=== PATIENT | male | born 1970 | race Caucasian/White ===

== ENCOUNTER 2018-02-22 13:45 | Emergency (ER) | payer BC ==
--- NOTE | 2018-02-22 14:51 | EDM.PDOC ---
<Gianna Villa - Last Filed: 02/22/18 15:20> ED HPI GENERAL MEDICAL PROBLEM - General Chief Complaint: Gastrointestinal Problem Stated Complaint: BLOOD IN STOOL Time Seen by Provider: 02/22/18 14:24 Source of Information: Reports: Patient - History of Present Illness INITIAL COMMENTS - FREE TEXT/NARRATIVE: Everardo is a 47-year-old man with history of psoriasis who reports blood in his stool with onset today. Pt states he had "the flu," for the past two days, described as diarrhea. No nausea, vomiting or abdominal pain. He does have mild abdominal cramping. He has no known sick contacts, no known exposures to raw or contaminated food, and no recent travel or antibiotic use. He reports having bright red blood with diarrhea today, described as turning the toilet water completely red. No known history of hemorrhoids. No NSAID or Tylenol use. He has never had a colonoscopy. He does drink to excess, with at least two drinks a day and 12 drinks on days he binges. - Related Data Allergies Allergy/AdvReac Type Severity Reaction Status Date / Time Penicillins Allergy Hives Verified 02/22/18 14:14 Home Meds: Home Meds . [No Known Home Meds] 02/22/18 [History] Past Medical History - Past Health History Medical/Surgical History: Denies Medical/Surgical History Dermatologic History: Reports: Psoriasis Social & Family History - Tobacco Use Smoking Status *Q: Current Every Day Smoker Years of Tobacco use: 27 Packs/Tins Daily: 0.5 - Caffeine Use Caffeine Use: Reports: Coffee, Energy Drinks - Recreational Drug Use Recreational Drug Use: No ED ROS GENERAL - Review of Systems Review Of Systems: ROS reveals no pertinent complaints other than HPI. Constitutional: Denies: Fever, Chills, Weakness, Decreased Appetite Respiratory: Reports: No Symptoms Cardiovascular: Reports: No Symptoms. Denies: Lightheadedness, Syncope GI/Abdominal: Reports: Abdominal Pain (abdominal pain), Bloody Stool, Diarrhea, Hematochezia (bright red blood in stool). Denies: Nausea Musculoskeletal: Reports: No Symptoms Skin: Reports: Other (psoriasis) Neurological: Reports: No Symptoms, Numbness Hematologic/Lymphatic: Reports: No Symptoms ED EXAM, GI/ABD - Physical Exam Exam Limited By: No Limitations General Appearance: Alert, No Apparent Distress Respiratory/Chest: Lungs Clear, Normal Breath Sounds Cardiovascular: Normal Peripheral Pulses, Regular Rate, Rhythm, No Murmur GI/Abdominal Exam: Normal Bowel Sounds, Soft, Non-Tender Extremities: Normal Capillary Refill Neurological: Alert, Oriented, Normal Cognition Psychiatric: Normal Affect, Normal Mood Skin Exam: Other (multiple psoriatic plaques, generalized) Course - Vital Signs Last Recorded V/S: Last Vital Signs Temp 36.9 C 02/22/18 17:52 Pulse 75 02/22/18 17:52 Resp 18 02/22/18 17:52 BP 118/78 02/22/18 17:52 Pulse Ox 99 02/22/18 17:52 - Orders/Labs/Meds Orders: Active Orders 24 hr Category Date Time Status Peripheral IV Care [RC] . DIRECTED Care 02/22/18 15:05 Active Peripheral IV Care [RC] . DIRECTED Care 02/22/18 15:05 Active C DIFFICILE BY PCR W/NAP1 [MOLEC] Stat Lab 02/22/18 15:32 Received CULTURE STOOL + SHIGATOX [RM] Stat Lab 02/22/18 15:32 Received PATIENT RETYPE [BBK] Stat Lab 02/22/18 15:32 Results TYPE AND SCREEN [BBK] Stat Lab 02/22/18 15:32 Results Peripheral IV Insertion Adult [OM.PC] Routine Oth 02/22/18 15:04 Ordered Labs: Laboratory Tests 02/22/18 02/22/18 02/22/18 Range/Units 15:32 15:32 15:32 WBC 9.58 H (4.23-9.07) K/mm3 RBC 4.44 L (4.63-6.08) M/mm3 Hgb 14.7 (13.7-17.5) gm/L Hct 42.2 (40.1-51.0) % MCV 95.0 H (79.0-92.2) fl MCH 33.1 H (25.7-32.2) pg MCHC 34.8 (32.2-35.5) g/dl RDW Std Deviation 41.7 (35.1-43.9) fL Plt Count 321 (163-337) K/mm3 MPV 8.3 L (9.4-12.3) fl Neut % (Auto) 59.6 (34.0-67.9) % Lymph % (Auto) 26.3 (21.8-53.1) % [place] % (Auto) 12.1 (5.3-12.2) % Eos % (Auto) 1.4 (0.8-7.0) Baso % (Auto) 0.3 (0.1-1.2) % Neut # (Auto) 5.71 H (1.78-5.38) K/mm3 Lymph # (Auto) 2.52 (1.32-3.57) K/mm3 [place] # (Auto) 1.16 H (0.30-0.82) K/mm3 Eos # (Auto) 0.13 (0.04-0.54) K/mm3 Baso # (Auto) 0.03 (0.01-0.08) K/mm3 PT 11.0 (9.5-12.1) SECONDS INR 1.01 Sodium 139 (136-145) mEq/L Potassium 3.5 (3.5-5.1) mEq/L Chloride 104 (98-107) mEq/L Carbon Dioxide 25 (21-32) mEq/L Anion Gap 13.5 (5-15) BUN 6 L (7-18) mg/dL Creatinine 0.9 (0.7-1.3) mg/dL Est Cr Clr Drug Dosing 104.77 mL/min Estimated GFR (MDRD) > 60 (>60) mL/min BUN/Creatinine Ratio 6.7 L (14-18) Glucose 102 (74-106) mg/dL Calcium 8.7 (8.5-10.1) mg/dL Magnesium 1.9 (1.8-2.4) mg/dl Total Bilirubin 0.4 (0.2-1.0) mg/dL AST 18 (15-37) U/L ALT 28 (16-63) U/L Alkaline Phosphatase 64 (46-116) U/L Total Protein 6.8 (6.4-8.2) g/dl Albumin 3.2 L (3.4-5.0) g/dl Globulin 3.6 gm/dL Albumin/Globulin Ratio 0.9 L (1-2) Blood Type Gel Antibody Screen 02/22/18 Range/Units 15:32 WBC (4.23-9.07) K/mm3 RBC (4.63-6.08) M/mm3 Hgb (13.7-17.5) gm/L Hct (40.1-51.0) % MCV (79.0-92.2) fl MCH (25.7-32.2) pg MCHC (32.2-35.5) g/dl RDW Std Deviation (35.1-43.9) fL Plt Count (163-337) K/mm3 MPV (9.4-12.3) fl Neut % (Auto) (34.0-67.9) % Lymph % (Auto) (21.8-53.1) % [place] % (Auto) (5.3-12.2) % Eos % (Auto) (0.8-7.0) Baso % (Auto) (0.1-1.2) % Neut # (Auto) (1.78-5.38) K/mm3 Lymph # (Auto) (1.32-3.57) K/mm3 [place] # (Auto) (0.30-0.82) K/mm3 Eos # (Auto) (0.04-0.54) K/mm3 Baso # (Auto) (0.01-0.08) K/mm3 PT (9.5-12.1) SECONDS INR Sodium (136-145) mEq/L Potassium (3.5-5.1) mEq/L Chloride (98-107) mEq/L Carbon Dioxide (21-32) mEq/L Anion Gap (5-15) BUN (7-18) mg/dL Creatinine (0.7-1.3) mg/dL Est Cr Clr Drug Dosing mL/min Estimated GFR (MDRD) (>60) mL/min BUN/Creatinine Ratio (14-18) Glucose (74-106) mg/dL Calcium (8.5-10.1) mg/dL Magnesium (1.8-2.4) mg/dl Total Bilirubin (0.2-1.0) mg/dL AST (15-37) U/L ALT (16-63) U/L Alkaline Phosphatase (46-116) U/L Total Protein (6.4-8.2) g/dl Albumin (3.4-5.0) g/dl Globulin gm/dL Albumin/Globulin Ratio (1-2) Blood Type A POSITIVE Gel Antibody Screen Negative Meds: Medications Discontinued Medications Generic Name Dose Route Start Last Admin Trade Name Freq PRN Reason Stop Dose Admin Sodium Chloride 1,000 mls @ 1,000 mls/hr 02/22/18 15:05 02/22/18 15:40 Normal Saline IV 02/22/18 16:04 1,000 mls/hr ONETIME ONE Administration Sodium Chloride 10 ml 02/22/18 15:05 02/22/18 15:40 Saline Flush FLUSH 10 ml ASDIRECTED PRN Administration Keep Vein Open Departure - Departure Disposition: Home, Self-Care 01 Clinical Impression: Lower gastrointestinal bleeding Diarrhea Qualifiers: Diarrhea type: presumed infectious Qualified Code(s): R19.7 - Diarrhea, unspecified - Discharge Information Instructions: Lower Gastrointestinal Bleeding, Diarrhea, Adult, [id number] Referrals: PCP,None [Primary Care Provider] - Forms: ED Department Discharge Additional Instructions: 1. Follow up with the primary care provider of your choice as soon as possible ( ideally next week). Dr. Murphy does colonoscopies and may be a good option ( [place]). You may also follow up with a clinic provider here, call [phone] to schedule. 2. Discuss referral for colonoscopy with your doctor. 3. Return to the ED if you continue to have bloody bowel movements, if you start to feel dizzy/lightheaded, or for any other concerning symptoms. - My Orders Last 24 Hours: My Active Orders 02/22/18 15:04 Peripheral IV Insertion Adult [OM.PC] Routine 02/22/18 15:05 Peripheral IV Care [RC] . DIRECTED Peripheral IV Care [RC] . DIRECTED 02/22/18 15:32 C DIFFICILE BY PCR W/NAP1 [MOLEC] Stat CULTURE STOOL + SHIGATOX [RM] Stat PATIENT RETYPE [BBK] Stat TYPE AND SCREEN [BBK] Stat - Assessment/Plan Last 24 Hours: My Active Orders 02/22/18 15:04 Peripheral IV Insertion Adult [OM.PC] Routine 02/22/18 15:05 Peripheral IV Care [RC] . DIRECTED Peripheral IV Care [RC] . DIRECTED 02/22/18 15:32 C DIFFICILE BY PCR W/NAP1 [MOLEC] Stat CULTURE STOOL + SHIGATOX [RM] Stat PATIENT RETYPE [BBK] Stat TYPE AND SCREEN [BBK] Stat <Dominic Garrison A - Last Filed: 02/22/18 18:42> ED ROS GENERAL - Review of Systems Review Of Systems: See Below ED EXAM, GI/ABD - Physical Exam Exam: See Below Ears: Normal External Exam Nose: Normal Inspection Throat/Mouth: Normal Inspection, Normal Oropharynx, Normal Voice Head: Atraumatic, Normocephalic Neck: Normal Inspection, Supple Rectal (Males) Exam: Other (No external sign of bleeding. Stool sample provided here was grossly bloody. ) Course - Re-Assessments/Exams Free Text/Narrative Re-Assessment/Exam: 02/22/18 18:38 Continue to feel well and have normal vital signs. He did have one bloody bowel movement here. Discussed options including transfer to [facility] for admission ( surgeon economic historian today doesn't feel comfortable managing lower GI bleed) vs. dc home and return to ED if symptoms continue/worsen. Given that he is healthy, has normal HCT here today, normal vital signs, no blood thinners, I am comfortable discharging him with strict return precautions should bleeding continue. He has never had a colonoscopy, discussed that this will be needed as well. He is comfortable with plan for discharge, prefers not to be transferred at this time. Departure - Departure Time of Disposition: 17:34
--- NOTE | 2018-02-22 14:53 | EDM.PDOC ---
ED HPI GENERAL MEDICAL PROBLEM - General Chief Complaint: Gastrointestinal Problem Stated Complaint: BLOOD IN STOOL Time Seen by Provider: 02/22/18 14:24 - Related Data Allergies Allergy/AdvReac Type Severity Reaction Status Date / Time Penicillins Allergy Hives Verified 02/22/18 14:14 Home Meds: Home Meds . [No Known Home Meds] 02/22/18 [History] Past Medical History - Past Health History Medical/Surgical History: Denies Medical/Surgical History Dermatologic History: Reports: Psoriasis Social & Family History - Tobacco Use Smoking Status *Q: Current Every Day Smoker Years of Tobacco use: 27 Packs/Tins Daily: 0.5 - Caffeine Use Caffeine Use: Reports: Coffee, Energy Drinks - Recreational Drug Use Recreational Drug Use: No Course - Vital Signs Last Recorded V/S: Last Vital Signs Temp 98.6 F 02/22/18 14:11 Pulse 78 02/22/18 14:11 Resp 18 02/22/18 14:11 BP 121/80 02/22/18 14:11 Pulse Ox 98 02/22/18 14:11 Departure - Discharge Information Referrals: PCP,None [Primary Care Provider] -
[2018-02-22] MEDS ORDERED: Sodium Chloride 0.9% 10 ML Syringe FLUSH PRN (15:05)
[2018-02-22] MEDS ORDERED: Sodium Chloride 0.9% 1,000 ML IV ONE (15:05)
== END 2018-02-22 17:50 | disposition home or self-care (01) ==
LOC: JD.ED 13:45
DX: K92.2 Gastrointestinal hemorrhage, unspecified (principal); R19.7 Diarrhea, unspecified; F17.210 Nicotine dependence, cigarettes, uncomplicated; Z88.0 Allergy status to penicillin
CPT/HCPCS: 36415; 80053; 83735; 85025; 85610; 86850; 86900; 86901; 87046; 87493; 96360; 99283; J7040; J7050

== ENCOUNTER 2019-07-23 06:32 | Day surgery (SDC) | payer BC, OTHER ==
[2019-07-23] MEDS ORDERED: Bupivacaine 0.25% 10 ML SDV ONE (06:52)
[2019-07-23] MEDS ORDERED: Lidocaine 1% 50 ML MDV ONE (06:52)
[2019-07-23] MEDS ORDERED: Lidocaine 1%/Sod Bicarbonate in NS 8.4% 1 ML Syringe IDERM PRN (07:00)
[2019-07-23] MEDS ORDERED: Lactated Ringers 1,000 ML IV SCH (07:00)
[2019-07-23] MEDS ORDERED: Sodium Chloride 0.9% 10 ML Syringe FLUSH PRN (07:00)
--- NOTE | 2019-07-23 07:21 | PCM.PREANE ---
Preanesthetic Assessment - Anesthesia/Transfusion/Family Hx Anesthesia History: No Prior Anesthesia - Review of Systems General: No Symptoms Pulmonary: No Symptoms Cardiovascular: No Symptoms Gastrointestinal: No Symptoms Neurological: No Symptoms Other: Reports: None - Physical Assessment NPO Status Date: 07/22/19 NPO Status Time: 22:00 ASA Class: 2 Mental Status: Alert & Oriented x3 Airway Class: Mallampati = 1 Dentition: Reports: Caries Thyro-Mental Finger Breadths: 3 Mouth Opening Finger Breadths: 3 ROM/Head Extension: Full Lungs: Clear to Auscultation, Normal Respiratory Effort Cardiovascular: Regular Rate, Regular Rhythm - Lab Values: Laboratory Last Values MRSA (PCR) Negative 07/15/19 10:47 - Allergies Allergies/Adverse Reactions: Allergies Allergy/AdvReac Type Severity Reaction Status Date / Time Penicillins Allergy Hives Verified 07/22/19 13:05 - Acknowledgements Anesthesia Type Planned: Regional Block, MAC Pt an Appropriate Candidate for the Planned Anesthesia: Yes Alternatives and Risks of Anesthesia Discussed w Pt/Guardian: Yes Pt/Guardian Understands and Agrees with Anesthesia Plan: Yes PreAnesthesia Questionnaire - Past Health History Medical/Surgical History: Denies Medical/Surgical History HEENT History: Reports: Impaired Vision Cardiovascular History: Reports: None Respiratory History: Reports: None, Other (See Below) (possible sleep apnea) Gastrointestinal History: Reports: None Genitourinary History: Reports: None ROUTE RIDER SUPERVISOR History: Reports: None Musculoskeletal History: Reports: None Neurological History: Reports: None Psychiatric History: Reports: None Endocrine/Metabolic History: Reports: None Hematologic History: Reports: None Immunologic History: Reports: None Oncologic (Cancer) History: Reports: None Dermatologic History: Reports: None - Past Surgical History Head Surgeries/Procedures: Reports: None HEENT Surgical History: Reports: None Cardiovascular Surgical History: Reports: None Respiratory Surgical History: Reports: None GI Surgical History: Reports: None Female Surgical History: Reports: None Male Surgical History: Reports: Vasectomy Endocrine Surgical History: Reports: None Neurological Surgical History: Reports: None Musculoskeletal Surgical History: Reports: None Oncologic Surgical History: Reports: None Dermatological Surgical History: Reports: None - SUBSTANCE USE Smoking Status *Q: Current Every Day Smoker Recreational Drug Use History: No - HOME MEDS Home Medications: Home Meds Acetaminophen/HYDROcodone [Thornton 325-5 MG] 1 - 2 tab PO Q6H PRN #10 tablet 07/23 [Rx] - CURRENT (IN HOUSE) MEDS Current Meds: Current Medications Lactated Ringer's (Ringers, Lactated) 1,000 mls @ 125 mls/hr IV ASDIRECTED BEBE Stop: 07/23/19 23:00 Last Admin: 07/23/19 07:00 Dose: 125 mls/hr Lidocaine/Sodium Bicarbonate (Buffered Lidocaine 1% In Ns 8.4%) 0.25 ml IDERM ONETIME PRN PRN Reason: Prior to IV Start Stop: 07/23/19 18:00 Last Admin: 07/23/19 06:59 Dose: 0.25 ml Sodium Chloride (Saline Flush) 10 ml FLUSH ASDIRECTED PRN PRN Reason: Keep Vein Open Stop: 07/23/19 18:00 Discontinued Medications Bupivacaine HCl (Sensorcaine-Mpf 0.25%) Confirm Administered Dose 10 ml .ROUTE .STK-MED ONE Stop: 07/23/19 06:53 Lidocaine HCl (Xylocaine 1%) Confirm Administered Dose 50 ml .ROUTE .STK-MED ONE Stop: 07/23/19 06:53
[2019-07-23] MEDS ORDERED: Propofol 200 MG/20 ML SDV ONE (07:24)
[2019-07-23] MEDS ORDERED: Midazolam 1 MG/ML 2 ML SDV ONE (07:25)
[2019-07-23] MEDS ORDERED: fentaNYL 100 MCG/2 ML SDV ONE (07:25)
[2019-07-23] MEDS ORDERED: Ondansetron 4 MG/2 ML SDV ONE (07:48)
--- NOTE | 2019-07-23 08:09 | PCM48HPAN ---
Post Anesthesia Note - EVALUATION WITHIN 48HRS OF ANESTHETIC Vital Signs in Normal Range: Yes Patient Participated in Evaluation: Yes Respiratory Function Stable: Yes Airway Patent: Yes Cardiovascular Function Stable: Yes Hydration Status Stable: Yes Pain Control Satisfactory: Yes Nausea and Vomiting Control Satisfactory: Yes Mental Status Recovered: Yes Vital Signs: Post procedure VSs: BP: 109/80 HR: 92 RR: 18 SpO2: 92% RA T: 97.8 F
--- NOTE | 2019-07-25 13:15 | PCM.OPNOTE ---
- General Post-Op/Procedure Note Date of Surgery/Procedure: 07/23/19 Operative Procedure(s): left carpal tunnel release Pre Op Diagnosis: left median nerve compression neuropathy Post-Op Diagnosis: Same Anesthesia Technique: Local, MAC Primary Surgeon: Bc Starks Anesthesia Provider: Vinh Davis Electronics Computer Mechanic: Clara Gutiérrez EBL in mLs: 5 Complications: None Condition: Good
--- NOTE | 2019-07-28 13:40 | OR ---
DATE OF OPERATION: 07/23/2019 SURGEON: Bc Starks MD OPERATION PERFORMED: Left carpal tunnel release. PREOPERATIVE DIAGNOSIS: Left median nerve compression neuropathy. POSTOPERATIVE DIAGNOSIS: Left median nerve compression neuropathy. ANESTHESIA: Local MAC. ANESTHESIA PROVIDER: Vinh Davis CRNA SUPERVISOR ROLLER PRINTING: Clara Gutiérrez PA-C ESTIMATED BLOOD LOSS: Less than 5 mL. COMPLICATIONS: None. CONDITION: Stable. DESCRIPTION OF PROCEDURE: The patient was identified in the preop holding area. Proper site was marked and identified by the surgeon. The patient was taken back to the operating theater where after adequate anesthesia, the patient's left upper extremity was sterilely prepped and draped in the usual sterile fashion. OR time-out was performed. The patient did not receive antibiotics and it is not indicated for soft tissue hand procedure. At this time, the left upper extremity was exsanguinated and an Esmarch was used as a tourniquet on the forearm. At this time, using 1% lidocaine without epinephrine and 0.25% Marcaine without epinephrine, the palmar cutaneous branch of the median nerve was anesthetized and then the incisional site was anesthetized using Rivera cardinal line and ulnar border of the fourth digit as reference. Once this had set up, an incision was made. Blunt dissection was taken down to the palmar cutaneous fascia. Palmar cutaneous fascia was incised with a Nikolai blade. At this time, the transverse carpal ligament was identified. A small rent was made in the transverse carpal ligament with a Nikolai blade under direct visualization. Resection of the transverse carpal ligament was done distally using tenotomy scissors making sure to stop short of the palmar arch. At this time, attention was turned proximally after it was found to be adequately released. Using the tenotomy scissors keeping the tips ulnar to protect the palmar cutaneous branch of the median nerve, the superficial forearm fascia as well as the transverse carpal ligament were resected proximally. It was found to be adequate release both proximally and distally. At this time, adequate saline was irrigated through the wound. 4-0 nylon sutures were used closure of the skin. The patient was placed in a sterile soft dressing and sent to PACU in stable condition. MMODAL /[id number]
== END 2019-07-23 08:35 | disposition home or self-care (01) ==
LOC: JD.SDS 06:32
PROVIDERS: ATTEND Orthopaedic Surgery
DX: G56.12 Other lesions of median nerve, left upper limb (principal); F17.210 Nicotine dependence, cigarettes, uncomplicated; Z88.0 Allergy status to penicillin
CPT/HCPCS: 64721; 87641; J2001; J2250; J2405; J2704; J3010; J3490; J7120; 01810